=== PATIENT | male | born 1955 | race Caucasian/White ===

== ENCOUNTER 2021-02-27 09:37 | Outpatient (CLI) | payer MEDICARE, SELFPAY ==
--- NOTE | ~2021-02-27 | XR_ITS ---
XR_CERV2-3V_CR DATE: 02/27/2021 09:55 INDICATION: Neck pain, finger tingling for 2 weeks after falling off of a ladder. TECHNIQUE: AP, open-mouth, lateral, swimmer views COMPARISON: None FINDINGS: Plates and screws are present at the lateral elements of C3, C4, C5 and C6 on the left. There is mild reversal cervical curvature. C1 and C2 are normally aligned and the odontoid process is intact. No fracture or dislocation or lock ed facet or prevertebral soft tissue swelling is evident. There is moderate loss of interspace height and spurring at C6-7 consistent with degenerative disc di sease. There is mild degenerative disease at C4-5 and C5-6. There is degenerative change at the uncovertebral joints. IMPRESSION: Reversal cervical curvature Degenerative changes Postoperative changes of the lateral elements of C3-C6 Reviewed, dictated and finalized at [facility]. Reviewed, dictated and finalized at [facility].
== END 2021-02-27 09:38 | disposition home or self-care (01) ==
LOC: ANHIMG 09:40
PROVIDERS: PCP Internal Medicine; Visit Provider Internal Medicine
DX: M50.30 Other cervical disc degeneration, unspecified cervical region (principal)
CPT/HCPCS: 72040

== ENCOUNTER 2021-09-19 10:11 | Outpatient (CLI) | payer MEDICARE, SELFPAY ==
--- NOTE | 2021-09-19 10:58 | EST_ITS ---
Patient Info Name: Leonel Mayes Age: 66 years : 1955 Gender: Male Ht: 76 in Wt: 275 lbs BSA: 2.62 m2 HR: 67 bpm BP: 144 / 88 mmHg Heart Rhythm: Sinus Rhythm Exam Date: 09/19/2021 11:50 AM Exam Location: [facility] Stress Patient Status: Outpatient Admit Date: 09/19/2021 Staff Ordering Physician: Lance Sales APRN Attending Provider: Robe Vicente DO Exercise Technologist: Sayda Crowe CT Exercise Physician: Herman Wisdom DO Exam Type: CA stress test treadmill Study Info Indications R07.9 - Chest pain, unspecified An exercise stress test was performed. Summary 1. 1. Negative Livan exercise stress test for ischemic ST changes by ECG criteria. 2. 2. Mildly reduced functional capacity, achieving 8.9 METs of workload. 3. 3. Baseline hypertension with hypertensive response to exercise. 4. 4. Appropriate HR response to exercise. 5. 5. Appropriate HR recovery at 1 minute post exercise. 6. 6. No imaging with stress testing. 7. 7. Patient informed of the above results. Protocol: Livan Stress ECG Details Stage: REST Duration (min): 0 min : 52 sec Speed (mph): 0.0 Grade (%): 0 HR (bpm): 67 SBP (mmHg): 144 DBP (mmHg): 88 METS: --- Stage: REST Duration (min): 3 min : 42 sec Speed (mph): 0.0 Grade (%): 0 HR (bpm): 78 SBP (mmHg): 144 DBP (mmHg): 88 METS: --- Stage: STAGE 1 Duration (min): 1 min : 0 sec Speed (mph): 1.7 Grade (%): 10 HR (bpm): 97 SBP (mmHg): 144 DBP (mmHg): 88 METS: --- Stage: STAGE 1 Duration (min): 2 min : 0 sec Speed (mph): 1.7 Grade (%): 10 HR (bpm): 107 SBP (mmHg): 144 DBP (mmHg): 88 METS: --- Stage: STAGE 1 Duration (min): 3 min : 0 sec Speed (mph): 1.7 Grade (%): 10 HR (bpm): 110 SBP (mmHg): 192 DBP (mmHg): 86 METS: --- Stage: STAGE 2 Duration (min): 1 min : 0 sec Speed (mph): 2.5 Grade (%): 12 HR (bpm): 118 SBP (mmHg): 192 DBP (mmHg): 86 METS: --- Stage: STAGE 2 Duration (min): 2 min : 0 sec Speed (mph): 2.5 Grade (%): 12 HR (bpm): 126 SBP (mmHg): 218 DBP (mmHg): 80 METS: --- Stage: STAGE 2 Duration (min): 3 min : 0 sec Speed (mph): 2.5 Grade (%): 12 HR (bpm): 131 SBP (mmHg): 218 DBP (mmHg): 80 METS: --- Stage: STAGE 3 Duration (min): 1 min : 0 sec Speed (mph): 3.4 Grade (%): 14 HR (bpm): 142 SBP (mmHg): 240 DBP (mmHg): 79 METS: --- Stage: STAGE 3 Duration (min): 1 min : 0 sec Speed (mph): 3.4 Grade (%): 14 HR (bpm): 142 SBP (mmHg): 240 DBP (mmHg): 79 METS: --- Stage: RECOVERY Duration (min): 0 min : 59 sec Speed (mph): 0.0 Grade (%): 0 HR (bpm): 129 SBP (mmHg): 240 DBP (mmHg): 79 METS: --- Stage: RECOVERY Duration (min): 1 min : 59 sec Speed (mph): 0.0 Grade (%): 0 HR (bpm): 105 SBP (mmHg):
== END 2021-09-19 10:12 | disposition home or self-care (01) ==
PROVIDERS: PCP Internal Medicine; Visit Provider Internal Medicine
DX: R07.89 Other chest pain (principal); Z82.49 Family history of ischemic heart disease and other diseases of the circulatory system; I10 Essential (primary) hypertension
CPT/HCPCS: 93017

== ENCOUNTER 2023-10-11 11:33 | Observation (INO) | payer MEDICARE, SELFPAY ==
[2023-10-11] VITALS (23 sets, daily range): BP systolic 120–179; BP diastolic 76–108; PULSE 56–96; RESP 14–21; TEMP 36.3–36.5; O2SAT 95–100; BMI 33.3
--- NOTE | ~2023-10-11 | CT_ITS ---
EXAMINATION: CTA BRAIN/CAROTID DATE: 10/11/2023 19:35 INDICATION: Right face and arm numbness TECHNIQUE: Computed tomographic angiography (CTA) of the head and neck was performed with 100 mL Omni paque-350 intravenous contrast. Multiplanar reconstructions and maximum intensity projection 3D-recon structions of the carotid arteries and of the intracranial arteries were created by the technologist on a separate workstation. Precontrast CT of the head was also obtained. Automated exposure control and iterative reconstruction technique were employed.The dose-length product was 1982.03 mGy-cm. COMPARISON: None. FINDINGS: Carotid arteries: Thoracic aorta is normal in caliber with minimal nonhemodynamically significant atherosclerotic plaqu e and no dissection. There is small amount of atherosclerotic plaque with 0% stenosis of both the rig ht and left carotid bulbs relative to normal distal artery lumen diameter (NASCET criteria). Cervical soft tissues are unremarkable. Mild to moderate cervical spondylosis. Prominent bone island at the C 7 spinous process. Head: No acute intracranial hemorrhage, acute infarction or abnormal extra axial fluid collection. There is mild scattered white matter hypoattenuation consistent with chronic small vessel ischemic disease. S ymmetric prominence of the sulci consistent with mild age-appropriate diffuse cerebral volume loss. Ventricles are normal and symmetric. No mass/mass effect. No abnormally enhancing brain lesions on th e postcontrast imaging The orbits, paranasal sinuses and mastoid air cells are normal. Intracranial arteries There is no hemodynamically significant stenosis in the vertebral, basilar and internal carotid arter ies. Vertebral arteries are codominant. There are no aneurysms identified. Both A1 and P1 segments a re patent. The right P1 segment is diminutive with majority of the supply to the right posterior cere bral artery supplied via a patent right posterior commuting artery. There is also a patent anterior c ommunicator artery. Cerebral arterial arborization appears symmetric. IMPRESSION: 1. Small amount of atherosclerotic plaque with 0% stenosis of both the right and left carotid bulbs r elative to normal distal artery lumen diameter (NASCET criteria). 2. Age-related changes in the brain to the mild diffuse volume loss and mild scattered white matter h ypoattenuation consistent with chronic small vessel ischemic disease. No acute intracranial process. 3. Unremarkable cerebral CT angiogram with no hemodynamic significant stenosis or aneurysm. Reviewed, dictated and finalized at location [facility]. CTOR EQUIPMENT IMPRESSION: 1. Small amount of atherosclerotic plaque with 0% stenosis of both the right an d left carotid bulbs relative to normal distal artery lumen diameter (NASCET cr iteria). 2. Age-related changes in the brain to the mild diffuse volume loss and mild sc attered white matter hypoattenuation consistent with chronic small vessel ische emily disease. No acute intracranial process. 3. Unremarkable cerebral CT angiogram with no hemodynamic significant stenosis or aneurysm.
--- NOTE | ~2023-10-11 | XR_ITS ---
EXAMINATION: XR chest 2V DATE: 10/11/2023 12:36 INDICATION: Chest pain. TECHNIQUE: Frontal and lateral views of the chest were obtained. COMPARISON: CT abdomen and pelvis 06/30/2015 FINDINGS: There is no pneumonia, pleural effusion, or pneumothorax. The heart size is normal. There a re surgical changes of cervical spine. IMPRESSION: 1. No acute cardiopulmonary disease. Reviewed, dictated and finalized at location A. FICIAL FLY TIER
--- NOTE | ~2023-10-11 | MR_ITS ---
EXAMINATION: MR brain/brain stem wo/w con DATE: 10/12/2023 07:19 INDICATION: Transient ischemic episode with right-sided numbness TECHNIQUE: Magnetic resonance imaging (MRI) of the brain and brainstem was performed without and with 20 mL Multihance intravenous contrast. Sequences included sagittal and axial T1-weighted SE, axial d iffusion-weighted FS SE, axial 3D SWAN, axial T2-weighted FLAIR, and axial T2-weighted FSE. Postcontr ast axial and coronal T1-weighted SE was obtained. Apparent diffusion coefficient (ADC) maps were cre ated. COMPARISON: Head CT and CT angiogram dated 10/11/2023 FINDINGS: There are no areas of restricted diffusion to suggest acute infarction. No intracranial hemorrhage or abnormal intracranial mass lesion. There are scattered areas of nonspecific increased T2-weighted si gnal intensity in the cerebral white matter, predominantly involving the deep and periventricular whi te matter. There are no intraparenchymal signal abnormalities seen on the other pulse sequences. The ventricles are symmetric and normal in size. There are no abnormal extra-axial fluid collections. Keith w voids are seen in the cerebral arteries on the T2-weighted sequences consistent with their expected patency. Changes of left intraocular lens replacement. Mild mucoperiosteal thickening the bilateral ethmoid sinuses and mucous retention cyst in the bilateral maxillary sinuses. Visualized orbits and s oft tissues are unremarkable. There are no areas of abnormal enhancement on the post contrast images. IMPRESSION: 1. No acute intracranial process or abnormally enhancing brain lesions. 2. Scattered nonspecific white matter T2 hyperintensity which is within normal limits for age and lik doug sequela of chronic small vessel ischemic disease. Reviewed, dictated and finalized at location A. CH OPERATIONS SPECIALIST IMPRESSION: 1. No acute intracranial process or abnormally enhancing brain lesions. 2. Scattered nonspecific white matter T2 hyperintensity which is within normal limits for age and likely sequela of chronic small vessel ischemic disease.
--- NOTE | 2023-10-11 12:16 | ECG_ITS ---
Measurements Intervals Jarrell Rate: 79 P: 17 AK: 168 QRS: 23 QRSD: 114 T: 26 QT: 379 QTc: 436 Interpretive Statements SINUS RHYTHM INCOMPLETE RIGHT BUNDLE BRANCH BLOCK BORDERLINE ECG NO PREVIOUS ECG AVAILABLE FOR COMPARISON Electronically Signed On 10-11-2023 13:39:26 DIE DRAWING CHECKER by Avelino Schilling M.D.
[2023-10-11 12:35] LABS: Basophils Absolute Auto 0.1 K/mm3 (0.0-0.1); Basophils Percent Auto 1.1 % (0.2-1.2); Eosinophils Absolute Auto 0.1 K/mm3 (0-0.3); Eosinophils Percent Auto 1.1 % (0-4.4); Hematocrit 45.1 % (42.0-52.0); Hemoglobin 15.1 g/dL (14.0-18.0); Immature Granulocyte Absolute 0.05 K/mm3 (0.00-0.031); Immature Granulocyte Percent A 0.7 % (0-0.5); Lymphocytes Absolute Auto 1.77 K/mm3 (0.9-3.2); Mean Corpuscular HGB Conc 33.5 g/dl (32-36); Mean Corpuscular Hemoglobin 29.1 pg (26-34); Mean Corpuscular Volume 86.9 fl (80-100); Mean Platelet Volume 11.1 fl (7.4-10.4); Monocytes Absolute Auto 0.7 K/mm3 (0.1-0.6); Monocytes Percent Auto 9.5 % (2.6-8.5); Neutrophils Absolute Auto 4.4 K/mm3 (1.3-6.7); Neutrophils Percent Auto 62.6 % (45.5-73.1); Platelet Count Result 272 k/mm3 (150-375); Red Blood Count 5.19 M/mm3 (4.6-6.20); Red Cell Distribution Width 12.5 % (11.5-14.5); White Blood Count 7.1 K/mm3 (4.5-10.0)
[2023-10-11 12:46] LABS: INR 0.9; Partial Thromboplastin Time 28.8 SECONDS (22.3-36.8); Prothrombin Time 12.9 Seconds (11.1-14.7)
[2023-10-11 12:48] LABS: Alanine Aminotransferase 38 U/L (6-50); Albumin Level 4.9 g/dL (3.5-5.1); Alkaline Phosphatase 65 U/L (38-126); Anion Gap 12 mmol/L (8-16); Aspartate Amino Transferase 30 U/L (17-59); Bilirubin,Total 0.7 mg/dL (0.2-1.3); Blood Urea Nitrogen 20 mg/dL (9-20); Calcium 9.5 mg/dL (8.4-10.2); Carbon Dioxide 22 mmol/L (22-30); Chloride 103 mmol/L (98-107); Estimated Glomerular Filt Rate > 60; Glucose 121 mg/dL (65-110); Lipase 63 U/L (23-300); Potassium 4.3 mmol/L (3.4-5.0); Sodium 137 mmol/L (137-145)
[2023-10-11 12:59] LABS: Troponin I < 0.012 ng/mL (0.000-0.034)
[2023-10-11 16:20] LABS: Troponin I < 0.012 ng/mL (0.000-0.034)
--- NOTE | 2023-10-11 18:32 | ED.NEUROSD ---
HPI - Neuro Symptoms/Deficit General Chief Complaint: Neuro Symptoms/Deficit Stated Complaint: facial numbness yesterday morning Time Seen by Provider: 10/11/23 18:26 History of Present Illness HPI Narrative: Patient was sitting up yesterday when he suddenly felt a sensation of numbness that went from his right mouth/lips down to his right arm. The entire episode lasted about 5 minutes and then he then went back to normal. Denies any weakness during this time, he called his over in and she did not note any facial droop. He is not on any aspirin but he is on statin but he does not take it daily Related Data Home Medications Medication Instructions Recorded Confirmed ibuprofen 200 mg tablet 200 mg PO Q6H PRN 04/21/20 02/20/23 tamsulosin 0.4 mg capsule 0.4 mg PO DAILY 08/30/23 Allergies Allergy/AdvReac Type Severity Reaction Status Date / Time NKDA Allergy Unknown NONE Uncoded 10/11/23 11:34 Review of Systems Review of Systems: CONST: No fever. HEENT: No sore throat C/V: No chest pain RESP: No cough GI: No abdominal pain : No dysuria. M/S: No joint pain. SKIN: No rash. NEURO: No current focal numbness or weakness PSYCH: [No depression] FOR[facility]LY [facility] Past Medical History Medical History (Updated 10/11/23 @ 18:39 by Allison Rahman MD) Abscess of axilla, left Abscess, scalp Arthritis Chest tightness Elevated blood pressure reading in office without diagnosis of hypertension Elevated TSH Elevated TSH Lateral epicondylitis of right elbow On fdc drug therapy Osteoarthritis Surgical History Surgical History H/O neck surgery Hx of colonoscopy Hx of eye surgery Hx of shoulder surgery Hx of tonsillectomy Family History Family History Father Family history of malignant neoplasm, Onset Age: 70 Mother Family history of malignant neoplasm, Onset Age: 74 Social History Social History Smoking status: Never smoker Second hand tobacco smoke exposure: No Alcohol intake: current Drinks per week: 1 Alcohol use details: social drinker Substance use: never Lack of Transportation: No Lack of Food: Never True Current Housing: I Have Housing Concerned About Future Housing: No Difficulty Paying Gas/Electric Bills: No Difficulty Paying for Meds: No Currently Unemployed: No Education: High School Diploma/GED Difficulty w/ Childcare or Family Care: No Exam Narrative: EXAMINATION OF ORGAN SYSTEMS/BODY AREAS: Constitutional: Vital signs per nursing GENERAL:[No acute distress, non-toxic appearing.] HEAD: Normal with no signs of head trauma. EYES: EOMI, left eye blind ENT: Hearing grossly intact LUNGS: Nonlabored breathing. HEART: [Regular rate and rhythm] ABD: [Soft], [nontender to palpation] EXT: Normal range of motion SKIN: [No rashes or lesions.] NEURO: [Alert and oriented x 3. No gross focal sensory or strength deficits. No facial droop. Moving all extremities equally without drift. Normal gait.] PSYCH: Normal affect Course Vital Signs Vital signs: Vital Signs Temperature 97.5 F L 10/11/23 12:12 Pulse Rate 96 10/11/23 12:12 Respiratory Rate 18 10/11/23 12:12 Blood Pressure 134/84 10/11/23 12:12 Pulse Oximetry 96 10/11/23 12:12 Oxygen Delivery Room Air 10/11/23 12:12 Temperature 97.3 F L 10/11/23 13:48 Pulse Rate 67 10/11/23 15:47 Respiratory Rate 16 10/11/23 15:47 Blood Pressure 134/85 10/11/23 15:47 Pulse Oximetry 98 10/11/23 15:47 Oxygen Delivery Room Air 10/11/23 12:12 MDM - Neuro Symptoms/Deficit MDM Narrative Medical decision making narrative: 58-year-old male presenting with symptoms of numbness to the right side of his face/arm yesterday for 5 minutes. VSS here, in NAD, NIHSS 0, no focal neuro deficits or any symptoms currently.
[2023-10-11 18:56] LABS: Troponin I < 0.012 ng/mL (0.000-0.034)
[2023-10-11] MEDS: ASPIRIN 81 MG CHEWABLE TABLET 324 MG PO (20:06)
--- NOTE | 2023-10-11 22:30 | ADMGEN ---
This patient, Leonel Mayes, was admitted to Medical Room 347-. Patient/family oriented to hospital policies and general routines including ID bracelet, bed and alarms, visiting hours, pain management, procedures, bathroom and other care routines, personal items, smoking policy, room service/diet, and visiting hours. Information on how to activate the Rapid Response Team has been discussed. Patient/Family are encouraged to report perceived risks to care and to ask questions if they do not understand what they are told or what they should do.
--- NOTE | 2023-10-11 22:51 | PM.IMHP ---
H&P: HPI History of Present Illness Date/Time: 10/11/23 22:51 Chief Complaint: Patient was asked by his primary care to come to the ER for evaluation Narrative: He is a very pleasant gentleman who woke up yesterday morning at around 6:00 a.m. when he suddenly felt a sensation of numbness and tingling sensations that started on the right side of his mouth and lips and went down to his right arm to the fingertips. It lasted about 5 minutes. Patient stood in front of the mirror and spoke with his as well and they both did not notice any facial droop. He had a court appointment yesterday where he went without any incidence. Today he called his PCP who asked him to come to the ER for evaluation. Patient seen and examined at the bedside by our ER physician and later on by myself. He has no complaints at this time, no facial droop and no numbness/tingling at this time. He is being placed under observation for TIA workup and neurology evaluation. 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 Osteoarthritis Surgical History Surgical History H/O neck surgery Hx of colonoscopy Hx of eye surgery Hx of shoulder surgery Hx of tonsillectomy Family History Family History Father Family history of malignant neoplasm, Onset Age: 70 Mother Family history of malignant neoplasm, Onset Age: 74 Social History Social History Smoking status: Never smoker Second hand tobacco smoke exposure: No Alcohol intake: never Drinks per week: 1 Alcohol use details: social drinker Substance use: never Substance use type: does not use Lack of Transportation: No Lack of Food: Never True Current Housing: I Have Housing Concerned About Future Housing: No Difficulty Paying Gas/Electric Bills: No Difficulty Paying for Meds: No Currently Unemployed: No Education: High School Diploma/GED Difficulty w/ Childcare or Family Care: No Spiritual care concerns: No Meds Home Medications and Allergies Home Medications Medication Instructions Recorded Confirmed Type ibuprofen 200 mg tablet 800 mg PO Q8-10H PRN Pain 04/21/20 10/11/23 History tamsulosin 0.4 mg capsule 0.4 mg PO DAILY 08/30/23 10/11/23 History pravastatin 20 mg tablet 20 mg PO EVERY OTHER DAY 10/11/23 10/11/23 History Allergies Allergy/AdvReac Type Severity Reaction Status Date / Time NKDA Allergy Unknown NONE Uncoded 10/11/23 11:34 Vital Signs Vital Signs - 24 hr 10/11/23 12:12 10/11/23 13:48 10/11/23 15:47 Temperature 36.4 C L 36.3 C L Pulse Rate 96 88 67 Respiratory Rate 18 18 16 Blood Pressure 134/84 137/80 134/85 Pulse Oximetry 96 98 98 Oxygen Delivery Room Air 10/11/23 18:25 10/11/23 18:30 10/11/23 18:45 Temperature Pulse Rate 66 63 62 Respiratory Rate 19 15 19 Blood Pressure Pulse Oximetry 98 97 97 Oxygen Delivery 10/11/23 19:00 10/11/23 19:16 10/11/23 19:19 Temperature Pulse Rate 62 66 66 Respiratory Rate 15 14 15 Blood Pressure 138/90 Pulse Oximetry 98 97 Oxygen Delivery 10/11/23 19:36 10/11/23 19:37 10/11/23 19:45 Temperature Pulse Rate 62 60 61 Respiratory Rate 19 15 Blood Pressure 152/97 H Pulse Oximetry 99 99 97 Oxygen Delivery 10/11/23 20:01 10/11/23 20:05 10/11/23 20:15 Temperature Pulse Rate 64 64 63 Respir
[2023-10-12] VITALS (9 sets, daily range): BP systolic 124–147; BP diastolic 72–78; PULSE 57–74; RESP 16–18; TEMP 36.3–36.8; O2SAT 96–99
--- NOTE | 2023-10-12 06:00 | ECHO_ITS ---
Patient Info Name: Leonel Mayes Age: 68 years : 1955 Gender: Male Ht: 76 in Wt: 274 lbs BSA: 2.61 m2 HR: 87 bpm BP: 147 / 72 mmHg Heart Rhythm: Sinus Rhythm Technical Quality: Fair Exam Date: 10/12/2023 9:39 AM Exam Location: Echo Lab Exam Room: [facility] Patient Status: Inpatient Admit Date: 10/11/2023 Staff Ordering Physician: Mateo Kelly MD Cloth Booker: Corrine Medrano RDCS Attending Provider: Francisco Marcelino MD Referring Physician: Leticia KENDRICK; Exam Type: CA echo doppler color flow Study Info Indications - TIA Complete two-dimensional, color flow and Doppler transthoracic echocardiogram is performed. Summary 1. Complete two-dimensional, color flow and Doppler transthoracic echocardiogram is performed. 2. Left ventricular chamber dimension is normal. 3. Left ventricular systolic function is hyperdynamic, estimated at >70%. 4. There is mildly increased left ventricular wall thickness. 5. The left ventricular diastolic function is grade I diastolic dysfunction. 6. Left atrial chamber dimension is mildly enlarged. 7. Right atrial chamber dimension is mildly enlarged. 8. There is no aortic valve stenosis. 9. There is trace mitral valve regurgitation. 10. There is trace tricuspid valve regurgitation. 11. No pulmonary hypertension, estimated pulmonary arterial systolic pressure is 27 mmHg. 12. Recommend repeat limited study with injection of agitated saline with and without Valsalva to assess for [id number] shunt at the interatrial level. Recommendations * Consider transesophageal echocardiogram if clinically indicated. Left Ventricle Left ventricular chamber dimension is normal. Left ventricular systolic function is hyperdynamic, estimated at >70%. There is mildly increased left ventricular wall thickness. The left ventricular diastolic function is grade I diastolic dysfunction. Right Ventricle Right ventricular chamber dimension is normal. Right ventricular systolic function is normal. Left Atria Left atrial chamber dimension is mildly enlarged. Right Atria Right atrial chamber dimension is mildly enlarged. Aortic Valve The aortic valve is trileaflet. There is no aortic valve stenosis. There is no aortic valve regurgitation. Pulmonic Valve The pulmonic valve is not well visualized. Mitral Valve The mitral valve has thickened leaflets. There is trace mitral valve regurgitation. The mitral valve annulus is mildly calcified. Tricuspid Valve The tricuspid valve leaflets are normal. There is trace tricuspid valve regurgitation. No pulmonary hypertension, estimated pulmonary arterial systolic pressure is 27 mmHg. Pericardium/Pleural The pericardium appears epicardial fat pad. There is no pericardial effusion. Inferior Vena Cava Normal inferior vena cava with >50% collapse upon inspiration consistent with normal right atrial pressure, 5 mmHg. Aorta The aortic root size at the sinus of Valsalva is normal. There is mild aortic atherosclerosis. Left Ventricular Outflow Tract Name Value Normal LVOT 2D LVOT Diameter 2.1 cm LVOT Doppler LVOT Peak Gradient 6 mmHg LVOT Mean Gradient 4 mmHg
[2023-10-12 08:07] LABS: Free T4 Free Thyroxine Reflex 1.23 ng/dL (0.78-2.19)
--- NOTE | 2023-10-12 08:48 | PM.IMPN ---
Progress Note: A&P Assessment and Plan (1) Brain TIA: Code(s): G45.9 - Transient cerebral ischemic attack, unspecified Status: Acute Assessment and Plan: 10/12/23: Patient states that yesterday around 6:00 a.m. in the morning he noticed some numbness on the right side of his face, around his lips, and his tongue. He also had some numbness down his right arm. This all seemed to last for about 5 minutes and went away. He came to the hospital for further evaluation. His neuro exam today was essentially negative, he denies any numbness, tingling, lightheadedness, nausea, vomiting, visual changes. EOMI, PERRLA, coordination intact, facial features symmetrical, he has no speech impairment, cranial nerves intact, no neuro defects at this time. He does endorse a headache today. Head and neck CTA revealed small amount of atherosclerotic plaque with 0% stenosis of both the right and left carotid bulbs relative to normal distal artery lumen diameter, age-related changes in the brain including mild diffuse volume loss and mild scattered white matter hypotension consistent with chronic small-vessel ischemic disease, CT angiogram did not show any significant stenosis or aneurysm. MRI of the brain did not show any acute intracranial process or abnormality enhancing brain lesions, scattered nonspecific white matter T2 hyperintensity which is within normal limits for age and likely due to chronic small vessel ischemic disease. Neurology consulted (2) Hyperlipidemia: Code(s): E78.5 - Hyperlipidemia, unspecified Status: Acute Assessment and Plan: 10/12/23: Triglycerides 164, total cholesterol 196, LDL cholesterol direct is still pending, HDL direct is 41 Pravastatin 20 mg restarted (3) Blindness of left eye: Code(s): H54.40 - Blindness, one eye, unspecified eye Status: Acute Assessment and Plan: 10/12/23: Of note, patient states that he became blind in his left eye after he had his neck surgery years ago. Time Spent With Patient Time with patient: Greater than 35 minutes Subjective Date/time seen: 10/12/23 08:48 Interval history: This is a 68 year old male who presents to the hospital on 10/11/23 with complaints of numbness that started around 6:00 a.m. yesterday. He states that the numbness was in his lips,his tongue, in the right side of his face, and down his right arm. He stated it lasted for about 5 minutes and then went away. He came to the ER for further evaluation. Workup in the hospital included a chest x-ray which did not show any acute cardiopulmonary disease. He also had a head and neck CTA which resulted a small amount of atherosclerotic plaque with 0% stenosis of both the right and left carotid bulbs relative to normal distal artery lumen diameter, age related changes in the brain including mild diffuse volume loss, mild scattered white matter hypoattenuation consistent with chronic small-vessel ischemic disease, CT angiogram was negative for any significant stenosis or aneurysm. He also had a brain MRI which was negative for any acute intracranial process or abnormality enhancing brain lesion, scattered nonspecific white matter T2 hyperintensity which is within normal limits for age and likely chronic small-vessel ischemic disease. Neurology was consulted and patient had an echocardiogram done which is pending. On examination today patient is alert and oriented x4, lying in the bed. He reports that he has a headache. He denies any fever, chills, nausea, vomiting, diarrhea, abdominal pain, shortness a breath, chest pain. Labs today revealed essentially normal labs, normal liver function, normal renal function. He did have a panel done which shows that his triglycerides were 164, total cholesterol 196, LDL is pending, HDL 41. Troponin x1 was negative. Vitamin B12 was 262, TSH was high at 5.63, free T4 1.23, total T3 1.48. Review of Systems Review of Systems: All systems reviewed & are
[2023-10-12 09:38] LABS: Total Triiodothyronine (T3) 1.48 NG/ML (0.97-1.69)
[2023-10-12] MEDS: ACETAMINOPHEN 325 MG TABLET 650 MG PO (12:48)
[2023-10-12 12:56] LABS: Hematocrit 44.7 % (42.0-52.0); Hemoglobin 14.7 g/dL (14.0-18.0); Mean Corpuscular HGB Conc 32.9 g/dl (32-36); Mean Corpuscular Hemoglobin 29.2 pg (26-34); Mean Corpuscular Volume 88.9 fl (80-100); Mean Platelet Volume 11.3 fl (7.4-10.4); Platelet Count Result 233 k/mm3 (150-375); Red Blood Count 5.03 M/mm3 (4.6-6.20); Red Cell Distribution Width 12.6 % (11.5-14.5); White Blood Count 6.7 K/mm3 (4.5-10.0)
[2023-10-12 13:08] LABS: Cholesterol 196 mg/dL (0-200); HDL Direct 41 mg/dL; Triglycerides 164 mg/dL (<150)
[2023-10-12 13:09] LABS: Alanine Aminotransferase 38 U/L (6-50); Albumin Level 4.5 g/dL (3.5-5.1); Alkaline Phosphatase 62 U/L (38-126); Anion Gap 11 mmol/L (8-16); Aspartate Amino Transferase 32 U/L (17-59); Bilirubin,Total 0.7 mg/dL (0.2-1.3); Blood Urea Nitrogen 21 mg/dL (9-20); Calcium 9.4 mg/dL (8.4-10.2); Carbon Dioxide 23 mmol/L (22-30); Chloride 103 mmol/L (98-107); Estimated CRCL calculation 83 ml/min; Estimated Glomerular Filt Rate > 60; Glucose 98 mg/dL (65-110); Potassium 4.4 mmol/L (3.4-5.0); Sodium 137 mmol/L (137-145)
[2023-10-12 13:19] LABS: LDL Cholesterol Direct 113 mg/dL
--- NOTE | 2023-10-12 16:04 | WPDNEURCNPN ---
Assessment and Plan Assessment and plan (1) Brain TIA: Code(s): G45.9 - Transient cerebral ischemic attack, unspecified Status: Acute Plan TIA continue aspirin 81mg daily and Plavix 75mg daily for the next 3 weeks echocardiogram has been done and has been noted he restart transesophageal echocardiogram I discussed with the patient and then accordingly Consult date: 10/12/23 HPI: Leonel Mayes is a 68 year old male admitted to the hospital through the emergency room for the complaints of facial numbness reportedly he was sitting up when he suddenly felt a sensation of numbness from his right side of the mouth to the lips and down to his right upper extremity which lasted for about 5minutes he did not have any other associated neurologica . at the Time ofthis incidence he was taking tamsulosin 0.4mg daily ibuprofen 200 q.6 hours p.r.n. and reportedly he is not allergic to any medicationsl symptomatology. initial exam in the emergency room was unremarkable he does have ongoing history of cervical spine surgery and eye surgery and he is not a smoker and drinks only 1 drink per week socially initial vital signs were normal so as the routine lab and subsequent investigations include head and neck CTA which is negative for any extra or intra stenosis or aneurysm, also brain MRI is negative, medications include pravastatin 20mg Q 48hours an initial administration of aspirin 324mg p.o. PMFSH Past Medical History Medical History Abscess of axilla, left Abscess, scalp Arthritis Chest tightness Elevated blood pressure reading in office without diagnosis of hypertension Elevated TSH Elevated TSH Lateral epicondylitis of right elbow On [facility] drug therapy Osteoarthritis Surgical History Surgical History H/O neck surgery Hx of colonoscopy Hx of eye surgery Hx of shoulder surgery Hx of tonsillectomy Family History Family History Father Family history of malignant neoplasm, Onset Age: 70 Mother Family history of malignant neoplasm, Onset Age: 74 Social History Social History Smoking status: Never smoker Second hand tobacco smoke exposure: No Alcohol intake: never Drinks per week: 1 Alcohol use details: social drinker Substance use: never Substance use type: does not use Lack of Transportation: No Lack of Food: Never True Current Housing: I Have Housing Concerned About Future Housing: No Difficulty Paying Gas/Electric Bills: No Difficulty Paying for Meds: No Currently Unemployed: No Education: High School Diploma/GED Difficulty w/ Childcare or Family Care: No Spiritual care concerns: No Meds Home Medications and Allergies Home Medications Medication Instructions Recorded Confirmed Type ibuprofen 200 mg tablet 800 mg PO Q8-10H PRN Pain 04/21/20 10/11/23 History tamsulosin 0.4 mg capsule 0.4 mg PO DAILY 08/30/23 10/11/23 History pravastatin 20 mg tablet 20 mg PO EVERY OTHER DAY 10/11/23 10/11/23 History Allergies Allergy/AdvReac Type Severity Reaction Status Date / Time No Known Drug Allergies Allergy Verified 10/12/23 09:05 Vital Signs Vital Signs - 24 hr 10/11/23 18:25 10/11/23 18:30 10/11/23 18:45 Temperature Pulse Rate 66 63 62 Respiratory Rate 19 15 19 Blood Pressure Pulse Oximetry 98 97 97 10/11/23 19:00 10/11/23 19:16 10/11/23 19:19 Temperature Pulse Rate 62 66 66 Respiratory Rate 15 14 15 Blood Pressure 138/90 Pulse Oximetry 98 97 10/11/23 19:36 10/11/23 19:37 10/11/23 19:45 Temperature Pulse Rate 62 60 61 Respiratory Rate 19 15 Blood Pressure 152/97 H Pulse Oximetry 99 99 97 10/11/23 20:01 10/11/23 20:05 10/11/23 20:15 Temperature Pulse Rate 64 64 63 Respiratory Rate 18 19 16 Blood Pressure 144/87 H
[2023-10-12] MEDS: TAMSULOSIN HCL 0.4 MG CAPSULE PO (20:40)
[2023-10-13] VITALS (8 sets, daily range): BP systolic 136–138; BP diastolic 72–82; PULSE 58–73; RESP 16–18; TEMP 36.6–36.8; O2SAT 98–99
[2023-10-13 06:25] LABS: Hematocrit 44.4 % (42.0-52.0); Mean Corpuscular HGB Conc 33.8 g/dl (32-36); Mean Corpuscular Hemoglobin 29.4 pg (26-34); Mean Corpuscular Volume 86.9 fl (80-100); Mean Platelet Volume 11.1 fl (7.4-10.4); Platelet Count Result 225 k/mm3 (150-375); Red Blood Count 5.11 M/mm3 (4.6-6.20); Red Cell Distribution Width 12.3 % (11.5-14.5); White Blood Count 5.7 K/mm3 (4.5-10.0)
[2023-10-13 06:42] LABS: Alanine Aminotransferase 35 U/L (6-50); Albumin Level 4.5 g/dL (3.5-5.1); Alkaline Phosphatase 62 U/L (38-126); Anion Gap 11 mmol/L (8-16); Aspartate Amino Transferase 26 U/L (17-59); Bilirubin,Total 0.7 mg/dL (0.2-1.3); Blood Urea Nitrogen 21 mg/dL (9-20); Calcium 9.3 mg/dL (8.4-10.2); Carbon Dioxide 24 mmol/L (22-30); Chloride 104 mmol/L (98-107); Estimated CRCL calculation 83 ml/min; Estimated Glomerular Filt Rate > 60; Glucose 103 mg/dL (65-110); Potassium 4.1 mmol/L (3.4-5.0); Sodium 139 mmol/L (137-145)
--- NOTE | 2023-10-13 08:51 | PM.DS ---
DS: Admitting Diagnosis Discharge Date 10/13/23 Admitting Diagnosis Brain TIA Family history of heart disease Chronic neck pain blindness of left eye Osteoarthritis of multiple joints hyperlipidemia Body mass index 34.0-324.9, adult DS: Discharge Diagnosis Discharge Diagnosis (1) Brain TIA: Code(s): G45.9 - Transient cerebral ischemic attack, unspecified Status: Acute (2) Hyperlipidemia: Code(s): E78.5 - Hyperlipidemia, unspecified Status: Acute (3) Blindness of left eye: Code(s): H54.40 - Blindness, one eye, unspecified eye Status: Acute DS: Summary Hospital Course Reason for hospitalization: Brain TIA Hospital Course: This is a 68 year old male who presents to the hospital on 10/11/23 with complaints of numbness that started around 6:00 a.m. yesterday.? He states that the numbness was in his lips,his tongue, in the right side of his face, and down his right arm.? He stated it lasted for about 5 minutes and then went away.? He came to the ER for further evaluation.? Workup in the hospital included a chest x-ray which did not show any acute cardiopulmonary disease.? He also had a head and neck CTA which resulted a small amount of atherosclerotic plaque with 0% stenosis of both the right and left carotid bulbs relative to normal distal artery lumen diameter, age related changes in the brain including mild diffuse volume loss, mild scattered white matter hypoattenuation consistent with chronic small-vessel ischemic disease, CT angiogram was negative for any significant stenosis or aneurysm.? He also had a brain MRI which was negative for any acute intracranial process or abnormality enhancing brain lesion, scattered nonspecific white matter T2 hyperintensity which is within normal limits for age and likely chronic small-vessel ischemic disease.? Neurology was consulted and patient had an echocardiogram done which resulted with grade 1 diastolic dysfunction, normal LV systolic function with an EF>70%, Normal RV function. On examination today patient alert and oriented x4 lying in the bed. Vital signs are stable, is on room air, he has been afebrile. He denies any new complaints today. Labs today were essentially unremarkable with normal kidney and liver function. Patient is stable for discharge at this time. He will be discharged on aspirin and Plavix and will need stay on this for 3 weeks per neurology recommendation. He will need to follow up with PCP in 1 week and Neurology in 2-3 weeks. Final diagnosis: Brain TIA Status at Discharge Cognitive/behavioral status at discharge: Alert and oriented x4 Functional status at discharge: independent ambulation Overall status at discharge: patient is progressing back to baseline Time Spent with Patient Time attestation: Total time spent providing and/or coordinating discharge services: Time spent: Greater than 30 minutes Exam Narrative: General: In no acute distress, well nourished Head: atraumatic, no encephalopathy Eyes: EOMI, PERRLA, sclera clear, patient is blind in his left eye at baseline ENT: moist mucous membranes, nasal passages clear Neck: supple, no JVD, no adenopathy, trachea midline Cardiac: Normal S1 and S2. No murmur, gallops or friction rubs, peripheral pulses intact. Respiratory: Lungs clear to auscultation, no adventitious lung sounds Gastrointestinal: soft, non-distended, non-tender, normoactive bowel sounds. : voiding without difficulty. Extremities: moves all extremities well, no edema, good ROM, strength 5/5 Skin: clean, dry, intact. No wounds or lesions. Neuro: Alert and oriented x4, cranial nerves intact, no neuro deficits, coordination intact, he does not have any slurred speech, facial features are symmetrical. He denies any visual changes, lightheadedness, or dizziness. He does report a headache. EOMI. Patient denies any numbness or tingling at this time. Psych: normal mood, normal affect, interactive DS: Data Data
[2023-10-13] MEDS: CLOPIDOGREL BISULFATE 75 MG TABLET PO (09:23)
[2023-10-13] MEDS: PRAVASTATIN SODIUM 20 MG TABLET PO (09:23)
[2023-10-13] MEDS: ASPIRIN 81 MG ENTERIC TABLET PO (09:23)
== END 2023-10-13 17:00 | disposition home or self-care (01) ==
LOC: ANHED 19:10 → ANH3MED 22:15
PROVIDERS: Emergency Medicine; Nurse Practitioner Acute Care; Admitting Provider Family Medicine; Emergency Provider Emergency Medicine; PCP Family Medicine; Visit Provider Student in an Organized Health Care Education/Training Program
DX: G45.9 Transient cerebral ischemic attack, unspecified (principal); I45.10 Unspecified right bundle-branch block; R03.0 Elevated blood-pressure reading, without diagnosis of hypertension; I51.89 Other ill-defined heart diseases; E78.5 Hyperlipidemia, unspecified; R90.82 White matter disease, unspecified; R07.89 Other chest pain; H54.40 Blindness, one eye, unspecified eye; M15.9 Polyosteoarthritis, unspecified; R94.6 Abnormal results of thyroid function studies; Z79.1 Long term (current) use of non-steroidal anti-inflammatories (NSAID); Z79.899 Other long term (current) drug therapy; F10.90 Alcohol use, unspecified, uncomplicated; Z82.49 Family history of ischemic heart disease and other diseases of the circulatory system
CPT/HCPCS: 36415; 70496; 70498; 70553; 71046; 80053; 80061; 82607; 83690; 84439; 84443; 84480; 84484; 85025; 85027; 85610; 85730; 93005; 93306; 99285; A9270; A9577; G0378; Q9967

== ENCOUNTER 2023-12-17 09:26 | Outpatient (CLI) | payer MEDICARE, SELFPAY ==
--- NOTE | 2023-12-17 09:53 | ECHO_ITS ---
Patient Info Name: Leonel Mayes Age: 68 years : 1955 Gender: Male Ht: 76 in Wt: 270 lbs BSA: 2.59 m? BP: 129 / 91 mmHg HR: 65 bpm Exam Date: 12/17/2023 10:14 AM Admit Date: 12/17/2023 Exam Location: Echo Lab Patient Status: Outpatient Exam Type: CA echo limited Technical Quality: Good Staff Ordering Physician: Lance Sales APRN Attending Provider: Lance Sales APRN Referring Physician: Henrry WALLS; Study Info Indications Code Description I51.89 Other ill-defined heart diseases Procedure(s) Limited two-dimensional transthoracic echocardiogram is performed with agitated saline. Contrast/Agitated Saline Contrast/Ag. Saline Amount Administered By Existing IV Access IV Access Condition New IV Access Site Condition Summary 1. This was a limited study for bubble study. 2. Intact interatrial septum visualized by agitated saline imaging. Negative bubble study at rest and with Valsalva. Atrial Septum Intact interatrial septum visualized by agitated saline imaging. Negative bubble study at rest and with Valsalva. Agitated Saline 20.00 ml patent with no signs of infiltration Antecubital Space IV removed Report Signatures Electronically signed by Estefania Aaron MD on 2023 13 : 10 [id number]
== END 2023-12-17 09:27 | disposition home or self-care (01) ==
LOC: ANHCARD 09:27
PROVIDERS: PCP Nurse Practitioner; Visit Provider Nurse Practitioner
DX: I51.89 Other ill-defined heart diseases (principal)
CPT/HCPCS: 93308